=== PATIENT | female | born 1990 | race Caucasian/White ===

== ENCOUNTER → 2018-12-14 | Outpatient (CLI) | payer OTHER ==
--- NOTE | 2018-12-14 11:37 | REPMRS ---
Patient History The patient states she had a clinical breast exam in 10/2018 Baseline Mammogram Patient is nulliparous. Family history of breast cancer at age 35 in mother, breast cancer at age 50 or over in paternal aunt, colorectal cancer in paternal uncle, colorectal cancer in paternal aunt, prostate cancer at age 50 or over in maternal grandfather. Digital Woman Screen Mammo: December 14, 2018 - Exam #: [id number] Bilateral CC and MLO view(s) were taken. Technologist: Kandace Knight, Technologist FINDINGS: The breast tissue is heterogeneously dense. This may lower the sensitivity of mammography. There is a moderate amount of residual dense fibroglandular tissue which is fairly symmetric. There is no dominant mass, architectural distortion, or clustered microcalcification typical of malignancy. The patient's Tyrer-Cuzick lifetime risk assessment score is 35.2 %. Assessment: BI-RADS/ACR category 2 mammogram. Benign Findings. Recommendation Breast MRI. Screening Breast MRI recommended in patients with lifetime risk assessment greater than 20-25%. Routine screening mammogram in 1 year (for women over age 40). Due to compelling family history with maternal breast cancer at age 35, annual screening should be performed henceforward. This mammogram was interpreted with the aid of an FDA-approved computer-aided dectection system. A. Negative x-ray reports should not delay biopsy if a dominant or clinically suspicious mass is present. B. Four to eight percent of cancers are not identified by mammography. C. Adenosis and dense breast may obscure an underlying neoplasm. Electronically Signed By: Arya Ley MD 12/14/18 [id number]
== END ==
LOC: M WHC 08:46
PROVIDERS: ATTEND Family Medicine
DX: Z12.31 Encounter for screening mammogram for malignant neoplasm of breast (principal); Z80.3 Family history of malignant neoplasm of breast

== ENCOUNTER → 2018-12-26 | Outpatient (CLI) | payer OTHER ==
[~2018-12-26] MED LIST: PROHANCE 279.3MG/ML 5ML VIAL (A9576) As Ordered ONE
--- NOTE | 2018-12-26 16:44 | REP ---
MRI BILATERAL BREASTS WITH AND WITHOUT CONTRAST: TECHNIQUE: Multiple sequences obtained in the axial, coronal and sagittal planes prior to and following the intravenous administration of 9 mL ProHance. There is a strong family history of breast cancer. Correlation made with prior mammogram 12/14/2018. Quyen Pulido lifetime risk of breast cancer is 35.2%. Images are evaluated in the [employer] software including subtraction images, CAD images and color overlay images. Subtraction images are also reviewed. There is moderate fibroglandular tissue bilaterally. There are a few subcentimeter cysts bilaterally in the anterior breasts. There is mild scattered background parenchymal enhancement. There is a tiny fibroadenoma anteriorly in the right breast. No suspicious enhancing mass or morphologic abnormality is seen. No axillary adenopathy is seen. IMPRESSION: ACR 2 benign. Moderate fibroglandular tissue with a few bilateral subcentimeter cysts. There is a subcentimeter fibroadenoma anteriorly in the right breast. No suspicious mass or morphologic abnormality. Continued screening MRI of the breast is recommended yearly. Electronically Signed by Kade Blas MD 12/27/2018 01:54 P
== END ==
LOC: M RAD 09:20
PROVIDERS: ATTEND Family Medicine
DX: N60.01 Solitary cyst of right breast (principal)
CPT/HCPCS: A9576; C8908